=== PATIENT | female | born 1990 | race Hispanic/Latino ===

== ENCOUNTER 2018-11-11 17:34 | Emergency (ER) | payer OTHER ==
[2018-11-11 19:02] LABS: #Lymphocytes 1.5 thou/uL (1.20-3.40); #Monocytes 0.4 thou/uL (0.11-0.59); %Basophils 0.1 % (0.0-1.0); %Eosinophils 0.3 % (0.0-10.0); %Lymphocytes 18.8 % (21.0-51.0); %Monocytes 5.1 % (0.0-10.0); %Neutrophils 75.7 % (42.0-75.0); Hemoglobin 10.4 g/dL (12.0-16.0); Mean Corpuscular HGB CONC 33.9 g/dL (32.0-36.0); Mean Corpuscular Hemoglobin 26.3 pg (27.0-31.0); Mean Corpuscular Volume 77.5 fL (78.0-98.0); RBC Distribution Width 14.2 % (11.5-14.5); Red Blood Cell (RBC) Count 3.94 mill/uL (4.20-5.40); White Blood Cell (WBC) Count 7.9 thou/uL (4.8-10.8)
[2018-11-11 19:27] LABS: MDiff Complete? YES; Mean Platelet Volume 10.3 fL (7.4-10.4); Platelet Count 193 thou/uL (130-400); Platelet Morphology Comment Appears Adequate; Polychromasia SLIGHT = 2-3 cells (100X) (0-2/hpf)
== END 2018-11-11 19:58 | disposition home or self-care (01) ==
LOC: ERS 17:34
DX: O99.89 Other specified diseases and conditions complicating pregnancy, childbirth and the puerperium (principal); R04.0 Epistaxis; O99.013 Anemia complicating pregnancy, third trimester; D64.9 Anemia, unspecified; Z3A.37 37 weeks gestation of pregnancy
CPT/HCPCS: 36415; 85025; 99283

== ENCOUNTER 2018-11-18 06:01 | Inpatient (IN) | payer OTHER ==
[2018-11-18 06:34] VITALS: BMI 31.2
[2018-11-18] MEDS: Lactated Ringer's 1,000 ML IV SCH ×2 (07:00→08:05)
[2018-11-18] MEDS ORDERED: Penicillin G Potassium 5 MILL.UNITS VIAL ONE (07:01)
[2018-11-18] MEDS ORDERED: Lidocaine 1% (PF) 30 ML VIAL SC PRN (07:06)
[2018-11-18] MEDS ORDERED: Ondansetron PF 4 MG/2 ML Vial IVP PRN ×3 (07:06→17:07)
[2018-11-18] MEDS ORDERED: HYDROcodone/Acetaminophen 5/325 mg Tablet PO PRN ×4 (07:06→17:07)
[2018-11-18] MEDS ORDERED: hydrALAZINE 20 MG/ML VIAL SLOW IVP PRN ×2 (07:06→17:07)
[2018-11-18] MEDS ORDERED: Butorphanol Tartrate 1 MG/ML VIAL SLOW IVP PRN (07:06)
[2018-11-18] MEDS ORDERED: Promethazine HCl 25 MG/ML VIAL IM PRN ×2 (07:06→08:21)
[2018-11-18] MEDS ORDERED: Ibuprofen 800 MG TAB PO PRN (07:06)
--- NOTE | 2018-11-18 07:08 | PDOC.EVN ---
Event Note - Event Note Event Note: Direct admission to Dr Dudley Orders placed as MD courtesy Patient not seen by me
[2018-11-18] MEDS ORDERED: Penicillin G Potassium 5 MILL.UNITS in Sodium Chloride 0.9% 100 ML IVPB SCH (07:15)
[2018-11-18] MEDS ORDERED: Fentanyl 4 mcg/Bup 0.1% Cadd 100 ML ONE (07:16)
[2018-11-18 07:22] LABS: Hemoglobin 11.8 g/dL (12.0-16.0); Mean Corpuscular HGB CONC 33.3 g/dL (32.0-36.0); Mean Corpuscular Hemoglobin 26.1 pg (27.0-31.0); Mean Corpuscular Volume 78.3 fL (78.0-98.0); Mean Platelet Volume 9.9 fL (7.4-10.4); Platelet Count 220 thou/uL (130-400); RBC Distribution Width 14.3 % (11.5-14.5); Red Blood Cell (RBC) Count 4.52 mill/uL (4.20-5.40); White Blood Cell (WBC) Count 8.7 thou/uL (4.8-10.8)
[2018-11-18 07:58] LABS: HBSAg Index 0.25 S/CO (0-0.99); HIV (1/2) Antibody/Antigen Non-Reactive (NonReactive); HIV 1/2 INDEX 0.12 S/CO (<1.00); Hep B Surf Ag Non-Reactive S/CO (NonReactive)
[2018-11-18 07:59] LABS: Syphilis Antibody Nonreactive (Nonreactive); Syphilis Antibody Index 0.09 S/CO (<1.00 Non-Reactive)
[2018-11-18] MEDS ORDERED: Naloxone HCl 0.4 mg/ml Vial IVP PRN ×2 (08:21)
[2018-11-18] MEDS ORDERED: diphenhydrAMINE 50 MG/ML VIAL IVP PRN (08:21)
[2018-11-18] MEDS ORDERED: ePHEDrine/0.9% NaCl/PF SYRINGE 50 mg/10 ml SLOW IVP PRN (08:21)
[2018-11-18] MEDS ORDERED: Lactated Ringer's 500 ML IV PRN (08:21)
[2018-11-18] MEDS ORDERED: Acetaminophen 325 MG TAB PO PRN (08:21)
[2018-11-18] MEDS ORDERED: Communication Order-Pharmacy FS SCH (08:30)
[2018-11-18] MEDS ORDERED: Fentanyl 4 mcg/Bupivacaine 0.1% Cassette 100 ML EPIDURAL SCH (08:30)
[2018-11-18] MEDS ORDERED: Bupivacaine 0.25% HCL 30 ML VIAL ONE (09:00)
[2018-11-18] MEDS: Penicillin G 2.5 MILL.units 2.5 MILL.UNITS in Premix Bag 1 BAG IVPB SCH (11:01)
[2018-11-18] MEDS: NS / Oxytocin 40 units/1000ml 1,000 ML IV PRN ×2 (11:49→13:04)
--- NOTE | 2018-11-18 12:51 | PDOC.LDHP ---
Labor and Delivery H&P Chief complaint: contractions HPI: 28yo at 38w5d by LMP here with painful ctx since 399. No VB LOF. +FM Current gestational age (weeks): 38 Due date: 11/27/18 Dating criteria: last menstrual period Grav: 3 Para: 1 Current complications: none Abnormal US findings: No Past Medical History: denies Current medications: pre-shantelle vitamins Previous surgical history: none Allergies/Adverse Reactions: Allergies Allergy/AdvReac Type Severity Reaction Status Date / Time No Known Allergies Allergy Verified 11/18/18 06:25 Social history: none - Physical Exam Vital signs reviewed and normal: yes General: NAD Heart: RRR Lungs: CTAB Abdomen: gravid Extremeties: no edema FHT: category 1 [place] contractions every: 3min - Vaginal Exam cm dilated: 10 Effacement: 100% Station: 3+ - OB Labs Blood type: O RH: positive Antibody Screen: negative HIV: negative RPR: negative HEPSAg: negative 1 hour GCT: negative GBS: positive Urine drug screen: negative Rubella: immune - Assessment L&D Assessment: term patient in labor - Plan Plan: admit to L&D, labor augmentation if indicated, GBS antibiotic prophylaxis , informed consent obtained, anesthesia consult for pain management
--- NOTE | 2018-11-18 12:54 | PDOC.OPDEL ---
OB Operative/Delivery Note Delivery Dr/Surgeon: Luis Enrique Assist: n/a Pre-Delivery Diagnosis: active labor Procedure/Post Delivery Dx: spontaneous vaginal delivery Weeks gestation: 38 Anesthesia: epidural - Findings A Sex: female - 1 min: 9 - 5 min: 9 - Additional Findings/Plan Placenta delivered: manual removal (cord avulsion, manual extraction, complete, fundus firm, no excessive bleeding) Repaired Obstetrical Laceration: none Estimated blood loss: 175 Post delivery plan: routine recovery
[2018-11-18] MEDS ORDERED: diphenhydrAMINE 25 MG CAP PO PRN (17:07)
[2018-11-18] MEDS ORDERED: Lanolin Ointment 7 GM TUBE TOP PRN (17:07)
[2018-11-18] MEDS ORDERED: Benzocaine-Menthol 82.5 ML CAN TOP PRN (17:07)
[2018-11-18] MEDS ORDERED: Milk Of Magnesia 30 ML UDCUP PO PRN (17:07)
[2018-11-18] MEDS ORDERED: Adacel (T-DAP) 0.5 ML SYRINGE IM ONE (17:07)
[2018-11-18] MEDS ORDERED: NS / Oxytocin 40 units/1000ml 1,000 ML IV SCH (17:07)
[2018-11-18] MEDS ORDERED: Bisacodyl 10 MG SUPP PR PRN (17:07)
[2018-11-18] MEDS ORDERED: Preparation H Ointment 28 GM TUBE PR PRN (17:07)
[2018-11-18] MEDS: Ferrous Sulfate 325 MG TAB PO SCH (18:11)
[2018-11-18] MEDS: Ibuprofen 800 MG TAB PO SCH (22:30)
[2018-11-18] MEDS: Docusate Calcium (SURFAK) 240 MG CAP PO SCH (22:30)
[2018-11-19] MEDS: Ibuprofen 800 MG TAB PO SCH ×2 (04:51→13:41)
[2018-11-19] MEDS: Ferrous Sulfate 325 MG TAB PO SCH (07:53)
[2018-11-19] MEDS: Penicillin G 2.5 MILL.units 2.5 MILL.UNITS in Premix Bag 1 BAG IVPB SCH (07:54)
--- NOTE | 2018-11-19 08:01 | PDOC.PP ---
Post Progress Note Post Day #: 1 PO intake tolerated: yes Flatus: yes Ambulation: yes Vital Signs (12 hours) Temp Pulse Resp BP 11/19/18 04:00 98.2 F 55 L 16 102/56 L Weight Weight 188 lb - Physical Examination General: NAD Respiratory: non-labored breathing Abdominal: no distention, appropriately TTP Fundus firm & at: umb Neurological: no gross focal deficits Psychiatric: normal affect Result Diagrams: 11/18/18 07:10 Additional Labs: Post Labs Blood Type O POSITIVE 11/18/18 07:34 Hep Bs Antigen Non-Reactive S/CO (NonReactive) 11/18/18 07:10 - Assessment/Plan PPD1 s/p TSVD VSSAF Doing well lochia appropriate, pain controlled Rh pos RImm DC home FU 6w
[2018-11-19] MEDS ORDERED: Prenatal Vitamin 1 TAB PO SCH (09:00)
[2018-11-19] MEDS: Docusate Calcium (SURFAK) 240 MG CAP PO SCH (09:12)
[2018-11-19 12:01] VITALS: BP 105/73; TEMP 98.2
== END 2018-11-19 13:58 | disposition home or self-care (01) | DRG 807 ==
LOC: L&D/OP 06:01 → L&D 07:11 → 3SW 13:04
PROVIDERS: ADMIT Student in an Organized Health Care Education/Training Program; ATTEND Student in an Organized Health Care Education/Training Program
PROC: 10E0XZZ Delivery of Products of Conception, External Approach (ICD-10-PCS; principal; 2018-11-18)
PROC: 10D17Z9 Manual Extraction of Products of Conception, Retained, Via Natural or Artificial Opening (ICD-10-PCS; 2018-11-18)
DX: O99.824 Streptococcus B carrier state complicating childbirth (principal); Z37.0 Single live birth; Z3A.38 38 weeks gestation of pregnancy
CPT/HCPCS: 36415; 51702; 85027; 86780; 86850; 86900; 86901; 87340; 87389; 99285; J2405; J2540; S0020

== ENCOUNTER 2019-11-22 13:21 | Outpatient (CLI) | payer OTHER ==
[2019-11-23 11:55] LABS: SARS-CoV-2 MS2 Positive; SARS-CoV-2 N Gene Negative; SARS-CoV-2 S Gene Negative; SARS-CoV-2 by NAA Not Detected (NotDetected); SARS-CoV-2 orf1ab Negative
== END 2019-11-22 13:22 | disposition home or self-care (01) ==
LOC: LABBT 13:21
PROVIDERS: ATTEND Student in an Organized Health Care Education/Training Program
DX: Z20.828 Contact with and (suspected) exposure to other viral communicable diseases (principal)
CPT/HCPCS: 87635; U0003

== ENCOUNTER 2019-11-25 05:30 | Inpatient (IN) | payer OTHER ==
[2019-11-25 06:05] VITALS: BMI 34.2
[2019-11-25] MEDS ORDERED: Promethazine HCl 25 MG/ML VIAL IM PRN ×3 (06:38→14:21)
[2019-11-25] MEDS ORDERED: Acetaminophen 500 MG TAB PO PRN (06:38)
[2019-11-25] MEDS ORDERED: Lidocaine 1% (PF) 30 ML VIAL SC PRN (06:38)
[2019-11-25] MEDS ORDERED: Diphenoxylate HCl/Atropine Tablet PO PRN (06:38)
[2019-11-25] MEDS ORDERED: HYDROcodone/Acetaminophen 5/325 mg Tablet PO PRN ×3 (06:38→14:21)
[2019-11-25] MEDS ORDERED: Ondansetron PF 4 MG/2 ML Vial IVP PRN ×3 (06:38→14:21)
[2019-11-25] MEDS ORDERED: Carboprost 250 MCG/ML AMP IM PRN (06:38)
[2019-11-25] MEDS ORDERED: Butorphanol Tartrate 1 MG/ML VIAL SLOW IVP PRN (06:38)
[2019-11-25] MEDS ORDERED: hydrALAZINE 20 MG/ML VIAL SLOW IVP PRN ×2 (06:38→14:21)
[2019-11-25] MEDS ORDERED: Misoprostol 200 MCG TAB PR PRN (06:38)
[2019-11-25] MEDS ORDERED: Ibuprofen 800 MG TAB PO PRN (06:38)
[2019-11-25] MEDS ORDERED: Methylergonovine 0.2 MG/ML VIAL IM PRN (06:38)
[2019-11-25] MEDS ORDERED: NS w/ Oxytocin 10 units 500 ML IV SCH (06:45)
[2019-11-25] MEDS ORDERED: Fentanyl 4 mcg/Bup 0.1% Cadd 100 ML ONE (06:58)
[2019-11-25 07:01] LABS: Hemoglobin 10.6 g/dL (12.0-16.0); Mean Corpuscular HGB CONC 33.8 g/dL (32.0-36.0); Mean Corpuscular Volume 79.8 fL (78.0-98.0); Mean Platelet Volume 10.8 fL (7.4-10.4); Platelet Count 166 thou/uL (130-400); Red Blood Cell (RBC) Count 3.92 mill/uL (4.20-5.40); White Blood Cell (WBC) Count 6.8 thou/uL (4.8-10.8)
[2019-11-25] MEDS: Lactated Ringer's 1,000 ML IV SCH ×2 (07:27→10:54)
[2019-11-25 07:43] LABS: HBSAg Index 0.14 S/CO (0-0.99); Hep B Surf Ag Non-Reactive S/CO (NonReactive); Syphilis Antibody Nonreactive (Nonreactive); Syphilis Antibody Index 0.06 S/CO (<1.00 Non-Reactive)
[2019-11-25] MEDS ORDERED: Naloxone HCl 0.4 mg/ml Vial IVP PRN ×2 (07:50)
[2019-11-25] MEDS ORDERED: Acetaminophen 325 MG TAB PO PRN (07:50)
[2019-11-25] MEDS ORDERED: Lactated Ringer's 500 ML IV PRN (07:50)
[2019-11-25] MEDS ORDERED: diphenhydrAMINE 50 MG/ML VIAL IVP PRN (07:50)
[2019-11-25] MEDS ORDERED: EPHEDRINE 25 MG/5 ML SYRINGE SLOW IVP PRN (07:50)
[2019-11-25] MEDS ORDERED: Communication Order-Pharmacy FS SCH (08:00)
[2019-11-25] MEDS ORDERED: Fentanyl 4 mcg/Bupivacaine 0.1% Cassette 100 ML EPIDURAL SCH (08:00)
[2019-11-25] MEDS ORDERED: Bupivacaine 0.25% HCL 30 ML VIAL ONE (08:54)
--- NOTE | 2019-11-25 09:55 | PDOC.LDHP ---
Labor and Delivery H&P Chief complaint: scheduled induction HPI: 29yo A1 at 39w0d by LMP here for elective IOL. No complaints Current gestational age (weeks): 39 Due date: 12/02/19 Dating criteria: last menstrual period Grav: 4 Para: 2 Current complications: none Abnormal US findings: No Past Medical History: denies Current medications: pre- vitamins, iron Previous surgical history: none Allergies/Adverse Reactions: Allergies Allergy/AdvReac Type Severity Reaction Status Date / Time No Known Allergies Allergy Verified 11/25/19 06:02 Social history: none - Physical Exam Vital signs reviewed and normal: yes General: NAD Heart: RRR Lungs: CTAB Abdomen: gravid Extremeties: no edema FHT: category 1 [place] contractions every: 3min - Vaginal Exam cm dilated: 7 Effacement: 75% Station: -2 (arom clear) - OB Labs Blood type: O RH: positive Antibody Screen: negative HIV: negative RPR: negative HEPSAg: negative 1 hour GCT: negative GBS: negative Urine drug screen: negative Rubella: immune - Assessment L&D Assessment: elective induction at term - Plan Plan: admit to L&D, labor augmentation if indicated, informed consent obtained, anesthesia consult for pain management
[2019-11-25] MEDS: NS / Oxytocin 40 units/1000ml 1,000 ML IV PRN ×2 (12:10→13:38)
--- NOTE | 2019-11-25 12:21 | PDOC.OPDEL ---
OB Operative/Delivery Note Delivery Dr/Surgeon: Luis Enrique Assist: n/a Pre-Delivery Diagnosis: elective induction Procedure/Post Delivery Dx: spontaneous vaginal delivery Weeks gestation: 39 Anesthesia: epidural - Findings A Sex: male - 1 min: 8 - 5 min: 9 - Additional Findings/Plan Placenta delivered: spontaneous Repaired Obstetrical Laceration: none Estimated blood loss: 50cc Post delivery plan: routine recovery
[2019-11-25] MEDS ORDERED: Benzocaine-Menthol 82.5 ML CAN TOP PRN (14:21)
[2019-11-25] MEDS ORDERED: NS / Oxytocin 40 units/1000ml 1,000 ML IV SCH (14:21)
[2019-11-25] MEDS ORDERED: Bisacodyl 10 MG SUPP PR PRN (14:21)
[2019-11-25] MEDS ORDERED: Lanolin Ointment 7 GM TUBE TOP PRN (14:21)
[2019-11-25] MEDS ORDERED: Preparation H Ointment 28 GM TUBE PR PRN (14:21)
[2019-11-25] MEDS ORDERED: diphenhydrAMINE 25 MG CAP PO PRN (14:21)
[2019-11-25] MEDS ORDERED: Milk Of Magnesia 30 ML UDCUP PO PRN (14:21)
[2019-11-25] MEDS ORDERED: Ibuprofen 800 MG TAB PO SCH ×2 (15:15→22:00)
[2019-11-25] MEDS: Ferrous Sulfate 325 MG TAB PO SCH (17:29)
[2019-11-25] MEDS: Docusate Calcium (SURFAK) 240 MG CAP PO SCH (22:19)
[2019-11-26] MEDS ORDERED: Ibuprofen 800 MG TAB PO SCH (08:00)
[2019-11-26] MEDS ORDERED: Prenatal Vitamin 1 TAB PO SCH (09:00)
[2019-11-26] MEDS: Ferrous Sulfate 325 MG TAB PO SCH (09:00)
[2019-11-26] MEDS: Docusate Calcium (SURFAK) 240 MG CAP PO SCH (09:08)
[2019-11-26 13:08] VITALS: BP 108/66; TEMP 98.3
[2019-11-26] MEDS ORDERED: Adacel (T-DAP) 0.5 ML SYRINGE IM ONE (14:21)
== END 2019-11-26 13:55 | disposition home or self-care (01) | DRG 807 ==
LOC: L&D 05:41 → 3SW 14:54
PROVIDERS: ADMIT Student in an Organized Health Care Education/Training Program; ATTEND Student in an Organized Health Care Education/Training Program
PROC: 10E0XZZ Delivery of Products of Conception, External Approach (ICD-10-PCS; principal; 2019-11-25)
DX: O80 Encounter for full-term uncomplicated delivery (principal); Z37.0 Single live birth; Z3A.39 39 weeks gestation of pregnancy
CPT/HCPCS: 85027; 86780; 86850; 86900; 86901; 87340; J2590; S0020